=== PATIENT | male | born 1950 | race Caucasian/White ===

== ENCOUNTER 2017-07-27 13:52 | Emergency (ER) | payer MEDICARE, OTHER ==
--- NOTE | 2017-07-27 14:27 | ERNOTE ---
Medical Problem HPI - Narrative Date of Service: 07/27/17 - General Chief Complaint: General Assessment Time Seen by Provider: 07/27/17 14:03 Source: patient Exam Limitations: no limitations - Immun/Allergies/Home Medications Immunizations: IMMUNIZATION HX History of Influenza Vaccine Yes Allergies/Adverse Reactions: Allergies metoprolol Allergy (Verified 07/27/17 14:04) penicillin V Allergy (Verified 07/27/17 14:04) Sulfa (Sulfonamide Antibiotics) Allergy (Verified 07/27/17 14:04) Home Medications: HOME MEDICATIONS Aspirin [Aspirin EC] 81 mg PO DAILY 07/27/17 [Last Taken Unknown] Atorvastatin Calcium [Lipitor] 40 mg PO DAILY 07/27/17 [Last Taken Unknown] Benzonatate [Tessalon Perle] 100 mg PO PRN PRN 07/27/17 [Last Taken Unknown] Carvedilol [Coreg] 3.125 mg PO BID 07/27/17 [Last Taken Unknown] Clopidogrel Bisulfate [Plavix] 75 mg PO DAILY 07/27/17 [Last Taken Unknown] Ergocalciferol (Vitamin D2) [Vitamin D2] 50,000 unit PO WE 07/27/17 [Last Taken Unknown] Loratadine [Claritin] 10 mg PO DAILY 07/27/17 [Last Taken Unknown] Omeprazole [Prilosec] 20 mg PO DAILY 07/27/17 [Last Taken Unknown] Potassium Chloride [K-Dur] 20 meq PO BID 07/27/17 [Last Taken Unknown] - History of Present History Narrative: Pt. comes in with c/o blurred vision in the R side of B eyes. Pt. denies any other symptoms, SOB, NVD, fever, CP, headache, dixxiness, or weakness. Pt. 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 Pt. states that he had 2 strokes on the table and had the decreased vision on the left side and that has not changed but the R side of the vision had become blurry starting at abut 9am and resolving at around noon with no other symptoms and pt. states that when it happened today pt. became very weak but states that it is improving at this time. Review of Systems - Review of Systems Constitutional: Present: recent illness. Absent: fever, chills, weakness, fatigue EYE: Present: blurred vision, vision changes ENT: Present: no symptoms reported Respiratory: Present: no symptoms reported. Absent: shortness of breath, cough , wheezing Cardiology: Present: no symptoms reported. Absent: chest pain, palpitations, edema Gastrointestinal/Abdominal: Present: no symptoms reported. Absent: nausea, vomiting, diarrhea, abdominal pain Genitourinary: Present: no symptoms reported Musculoskeletal: Present: no symptoms reported. Absent: back pain, joint pain Skin: Present: no symptoms reported. Absent: rash, dryness, lesions, change in hair/nails Neurological: Present: no symptoms reported. Absent: headache, dizziness/light- headedness, numbness, tingling All Other Systems: All systems neg except as marked - Patient's Past Medical History Patient History - Medical: No pertinent hx Patient History - Cardiac/Respiratory: Coronary Heart Disease Patient History - Cancer: No Hx of Cancer Patient History - Surgical Procedures: Coronary Bypass Surgery Patient History - Other: None - Social History Living Situations: home Psych History: No pertinent hx Alcohol Use: none Drug Use: none - Immunizations History of Influenza Vaccine: Yes Physical Exam - Physical Exam General Appearance: Present: wd/wn, alert, no apparent distress Head Exam: Present: normal inspection, no evidence of injury Eye Exam: Normal inspection: bilateral, PERRL: bilateral, EOMI: bilateral, Other : bilateral - L peripheral vision 45 degrees and acuity 20/70 B eyes Ears, Nose, Throat: Present: normal ENT inspection, normal pharynx Neck: Present: normal inspection, nontender Respiratory: Present: no respiratory distress, normal breath sounds, no accessory muscle use, chest nontender, lungs clear Cardiovascular/Chest: Present: regular rate, rhythm, normal peripheral pulses, systolic murmur Gastrointestinal/Abdominal: Present: normal bowel sounds, nontender, nondistended, soft, no organomegaly Back Exam: Present: normal inspection, normal range of motion, no CVA tenderness , no vertebral tenderness Extremity Exam: Present: normal inspection, non-tender, normal range of motion, no edema Neurological Exam: Present: alert, oriented, normal mood/affect, no motor/ sensory deficits, normal cerebellar test, other - peripheral vision decreased 45 degrees L side Skin Exam: Present: normal color, warm/dry. Absent: pallor, skin rash ED Progress - Date and Time Seen: Date and Time: 07/27/17 15:49 As pt. does not have any acute changes in CT scan but cannot completely rule out CVA offered pt. admission and he declines as his symptoms are returned to normal at this time. Educated pt. that if he begins to feel bad again to return to the ER. - Results and Orders Patient's Lab Results:: I have reviewed the patient's lab results. - Vital Signs Patient's Vital Signs:: I have reviewed the patient's vital signs. Vital Signs: Vital Signs 07/27/17 07/27/17 13:57 14:09 Temperature 36.2 C L Pulse Rate 81 77 Respiratory 12 12 Rate Blood Pressure 135/76 O2 Sat by Pulse 97 95 Oximetry - EKG EKG: NSR, nonspecific ST T wave changes EKG read: Reviewed by me EKG Comments: interp by Dr Finn - CT/Ultrasound CT/Ultrasound Narrative: CT with notable subacute infarct likely 4 weeks. - Progress/Reassessment Chief Complaint: General Assessment Departure Clinical Impression: TIA (transient ischemic attack) Qualifiers: Transient cerebral ischemia type: unspecified Qualified Code(s): G45.9 - Transient cerebral ischemic attack, unspecified - Departure Disposition: Home self-care Condition: Good Instructions: Transient Ischemic Attack, [id number] Additional Instructions: Please follow up with your primary provider in 2-3 days and return to the ER if you develop any more symptoms.
[2017-07-27 14:46] LABS: Hematocrit 38.1 % (42.0-52.0); Hemoglobin 12.8 gm/dL (13.5-18.0); Mean Corpuscular Hemoglobin 29.6 pg (27-31); Mean Corpuscular Hgb Conc 33.6 g/dl (32-36); Mean Platelet Volume 8.9 fl (6.0-9.5); Neutrophil # 5.8 K/mm3 (1.3-6.0); Neutrophil % 69.8 % (42-75.0); Platelet Count 191 K/mm3 (150-450); Red Blood Count 4.33 M/mm3 (4.7-6.0); Red Cell Distribution Width 14.4 % (11.5-14.0); White Blood Count 8.3 K/mm3 (4.0-10.5)
[2017-07-27 14:59] LABS: Prothrombin Time (Patient) 9.9 Seconds (9.0-11.0)
[2017-07-27 15:01] LABS: Albumin * 3.4 gm/dl (3.4-5.0); BUN/Creatinine Ratio 17.2 (9.0-21.6); Bilirubin, Total 0.5 mg/dL (0.0-1.1); Ca. Corrected For Albumin 8.9 mg/dL (8.4-10.2); Calcium * 8.7 mg/dL (7.9-10.9); INR 0.99 INR (0.90-1.10); Partial Thrombolplastin Time 27.7 Seconds (24-32)
[2017-07-27 15:02] LABS: Urine Bilirubin Negative (NEGATIVE); Urine Blood Negative /ul (NEGATIVE); Urine Ketone Negative (NEGATIVE); Urine Nitrite Negative (NEGATIVE); Urine Protein Negative (NEGATIVE); Urine Specific Gravity <=1.005 SP.GR. (1.005-1.030); Urine Urobilinogen Normal (NORMAL); Urine pH 5.5 pH (5.0-7.0)
[2017-07-27 15:16] LABS: Urine Appearance Clear; Urine Bacteria TRACE; Urine Color Pale Yellow; Urine RBC None Seen /hpf (0-5); Urine WBC None Seen /hpf (0-5)
[2017-07-27 15:36] VITALS: BP 136/88
== END 2017-07-27 15:58 | disposition home or self-care (01) ==
LOC: ER 13:52
DX: G45.9 Transient cerebral ischemic attack, unspecified (principal); I25.2 Old myocardial infarction; Z86.73 Personal history of transient ischemic attack (TIA), and cerebral infarction without residual deficits